=== PATIENT | male | born 1955 | race Caucasian/White ===

== ENCOUNTER 2018-06-14 07:55 | Day surgery (SDC) | payer OTHER ==
[2018-06-14 09:24] VITALS: BP 118/77; BMI 30.4
[2018-06-14] MEDS ORDERED: HYDROCODON-ACE1 EA10 PO (11:10)
--- NOTE | 2018-06-15 14:15 | OP ---
PATIENT NAME: MICHAEL BEAULIEU MEDICAL RECORD: [id number] :51 LOCATION:[facility] ADMISSION DATE: SURGEON: KORTNEY BAKER MD DATE OF OPERATION: 06/14/2018 PREOPERATIVE DIAGNOSES: Rotator cuff tear of the right shoulder with impingement syndrome. POSTOPERATIVE DIAGNOSES: Rotator cuff tear of the right shoulder with impingement syndrome. PROCEDURES: 1. Arthroscopic rotator cuff repair. 2. Arthroscopic distal clavicle excision done through separate incision -- 1 cm. 3. Arthroscopic subacromial decompression, acromioplasty and bursectomy. SURGEON: Kortney Baker MD ANESTHESIA: General. INTRAOPERATIVE COMPLICATIONS: None. SUMMARY OF PATHOLOGIC FINDINGS: The patient had full thickness rotator cuff tear of the anterior aspect of the supraspinatus tendon as predicted on the MRI. The patient did have some biceps tendinitis, not extreme. The patient had a downward sloping acromion with excoriation of the coracoacromial ligament as well as a grade IV chondromalacia of the distal clavicle. OPERATIVE SUMMARY IN DETAIL: After obtaining appropriate preoperative orthopedic surgery consent as well as anesthetic consultation, evaluation and clearance, the patient was brought to the operating room and placed on operating table in supine position. After general laryngeal mask airway was administered, the patient was placed in a left lateral decubitus position. All pressure points were well padded. He was held firmly to the operating table using the vacuum pack suction system. Right upper extremity and shoulder were then prepped and draped in routine sterile fashion. The arm was held in the Arthrex traction boom in 30 degrees of forward flexion, 30 degrees of abduction, 10 pounds of traction laterally. Arthroscopy was established in the glenohumeral joint from the posterior portal, anterior portal was established in the anterior safe interval. Diagnostic arthroscopy did show the above findings. The patient did have a full thickness rotator cuff tear. A transrotator cuff tear portal was created, through which debridement of undersurface tearing was followed by decortication of the articular side of the supraspinatus tendinous footprint. Attention was turned to the subacromial space. While in the subacromial space, Arthrex [place] tissue ablation system was utilized to denude the undersurface of acromion of all soft tissue elements and release the coracoacromial ligament. A 5-0 barrel bur was then used to perform acromioplasty at the level of acromioclavicular joint. Distal clavicle was excised through an anterior arthroscopic portal under direct arthroscopic visualization. Having completed this, attention was returned to the rotator cuff. Further decortication was carried out for reapproximation. This was followed by an inverted mattress #2 FiberWire anchored laterally with a 5.5 SwiveLock from Arthrex completing the SpeedBridge. Having completed this, arthroscopy portals were closed in routine interrupted fashion using 4-0 Prolene. Sterile dressings were applied. The OPERATIVE REPORT [id number] MICHAEL BEAULIEU patient was awakened, taken to recovery room in stable condition. All final needle and sponge counts were correct. TRANSINT:[id number] Voice Confirmation ID: [id number] DOCUMENT ID: [id number] OLIVIA MANDUJANO, KORTNEY MAHMOOD at 1415 CC: [id number] DICTATION DATE: 06/14/18 1124 BOAT ENGINE MECHANIC: 06/14/18 1602 [facility] 06/14/18 [id number] [place] [address]
== END 2018-06-14 13:44 | disposition home or self-care (01) ==
LOC: D.OPS 07:55
DX: M75.121 Complete rotator cuff tear or rupture of right shoulder, not specified as traumatic (principal); M75.41 Impingement syndrome of right shoulder; Z01.812 Encounter for preprocedural laboratory examination

== ENCOUNTER → 2019-08-30 14:49 | Outpatient (CLI) | payer OTHER ==
[~2019-08-30 14:49] MED LIST: HYDROCODON-ACE1 EA10 PO
== END | disposition home or self-care (01) ==
LOC: D.CT 14:49
PROVIDERS: ATTEND Nurse Practitioner Family
DX: I74.3 Embolism and thrombosis of arteries of the lower extremities (principal)

== ENCOUNTER 2019-09-09 06:38 | Outpatient (CLI) | payer OTHER ==
[~2019-09-09] VITALS: Ht 172.7 cm; Wt 90.9 kg
--- NOTE | ~2019-09-09 | HEMODYNAMI ---
PATIENT:MICHAEL BEAULIEU MEDICAL RECORD: [id number] : 51 LOCATION:[facility] ADMISSION DATE: 09/09/19 Generatedon:09/09/201911:17 Patient name: MICHAEL BEAUILEU Patient #: [id number] SSN: D OB: 1955 Date of study: 09/09/2019 Page: Of Hemodynamic Procedure Report Patient Data Patient Demographics Procedure consent was obtained First Name: MICHAEL Gender: Male Last Name: BRITTNEE : 1955 Middle Initial: DONI Age: 63 year(s) Patient #: [id number] Race: Unknown Additional ID: [id number] Contact details [address]: [address] [place] [address] rd State: [place] City: [place] Zip code: [address] Past Medical History Allergies Allergen Reaction Date Comments Reported Iodine 09/09/2019 Betadine 09/09/2019 Admission Admission Data Admission Date: 09/09/2019 Admission Time: 6:38 Height (in.): 68 BSA: 2.04 (m2) Height (cm.): 172.72 BMI: 30.41 (kg/m2) Weight (lbs.): 200 Weight (kg.): 90.72 Procedure Procedure Types Cath Procedure Peripheral Cath Diagnostic Procedure Culinary Worker Peripheral Procedures Abd/Extremity Extremities Left Lower Ext Arterio Procedure Description Procedure Date Procedure Date: 09/09/2019 Procedure Start Time: 9:40 Procedure Staff Name Function Sameer Zhu MD Performing Physician Britney Díaz RT Record Librarian Lv BOATENG RN Nurse Rox Leyva RN Nurse Jackson Saba RT Scrub Procedure Data Cath Procedure Fluoroscopy Diagnostic fluoroscopy Total fluoroscopy Time: time: 22.1 min 22.1 min Diagnostic fluoroscopy Total fluoroscopy dose: 666 dose: 666 mGy mGy Contrast Material Contrast Material Type Amount (ml) Isovue 300 145 Entry Location Entry Primary Successful Side Size Upsize Upsize Entry Closure Succes sful Closure Location (Fr) 1 (Fr) 2 (Fr) Remarks Device Remarks Femoral Mynx artery Roto Rooter Operator 6Fr/7Fr Diagnostic catheters Device Type Used For End Catheter Placement DIAGNOSTIC IMT 5Fr Catheter ([id number]) Procedure Medications Medication Administration Route Dosage Lidocaine 1% added to field Heparin Flush Bag added to field 2 bags (1000units/500ml NS) Versed I.V. 1 mg Fentanyl I.V. 50 mcg Versed I.V. 0.5 mg Fentanyl I.V. 25 mcg Versed I.V. 0.5 mg Fentanyl I.V. 25 mcg Heparin Bolus I.V. 4000 units Nitroglycerin IC/IA I.A. 250 mcg Versed I.V. 0.5 mg Fentanyl I.V. 25 mcg Versed I.V. 1 mg Fentanyl I.V. 50 mcg Versed I.V. 0.5 mg Fentanyl I.V. 25 mcg Heparin Bolus I.V. 2500 units Fentanyl I.V. 50 mcg Versed I.V. 1 mg Integrilin (Bolus I.A. 8.5 ml 2mg/ml) Versed I.V. 0.5 mg Fentanyl I.V. 25 mcg Versed I.V. 0.5 mg Fentanyl I.V. 25 mcg Hemodynamics Rest BSA: 2.04 (m2) O2 Consumption: Estimated: 231.76 (ml/min) O2 Consumption indexed : Estimated:113.61 (ml/min/m) Heart Rate: 62 (bpm) Snapshots Pre Cath Intra NCS Post Cath Vital Signs Time Heart Resp SPO2 etCO2 NIBP (mmHg) Rhythm Pain Sedation Rate (ipm) (%) (mmHg) Status Level (bpm) 9:20:59 66 16 99 21 No Cuff NSR 0 (11) 9(A) , No pain 9:24:46 62 11 99 30.8 130/82(112) NSR 0 (11) 9(A) , No pain 9:28:56 59 15 100 27.8 125/83(108) NSR 0 (11) 9(A) , No pain 9:33:02 59 11 100 30.8 131/87(109) NSR 0 (11) 9(A) , No pain 9:37:12 60 16 100 30 127/85(116) NSR 0 (11) 9(A) , No pain 9:41:22 59 15 100 30 131/78(107) NSR 0 (11) 9(A) , No pain 9:45:31 65 16 97 30.8 118/82(106) NSR 0 (11) 9(A) , No pain 9:49:37 65 14 97 31.6 114/77(101) NSR 0 (11) 9(A) , No pain 9:53:45 67 12 97 35.3 111/71(92) NSR 0 (11) 9(A) , No pain 9:57:53 69 13 98 35.3 109/66(84) NSR 0 (11) 9(A) , No pain 10:01:59 68 12 98 23.3 113/68(86) NSR 0 (11) 9(A) , No pain 10:06:09 72 13 96 32.3 94/63(75) NSR 0 (11) 9(A) , No pain 10:10:12 69 12 97 33.8 96/58(80) NSR 0 (11) 9(A) , No pain 10:14:16 63 12 97 5.2 107/63(88) NSR 0 (11) 9(A) , No pain 10:18:24 63 13 97 13.5 119/65(79) NSR 0 (11) 9(A) , No pain 10:23:23 57 14 98 27.8 Measuring NSR 0 (11) 9(A) , No pain 10:23:27 58 14 98 30.8 158/97(139) NSR 0 (11) 9(A) , No pain 10:27:47 68 12 97 30.8 149/84(130) NSR 0 (11) 9(A) , No pain 10:32:05 57 10 99 34.6 145/82(130) NSR 0 (11) 9(A) , No pain 10:36:21 60 15 98 33.8 145/86(130) NSR 0 (11) 9(A) , No pain 10:40:41 63 12 99 36.1 132/75(118) NSR 0 (11) 9(A) , No pain 10:45:40 55 15 95 21.8 Measuring NSR 0 (11) 9(A) , No pain 10:45:53 64 13 98 21 145/90(131) NSR 0 (11) 9(A) , No pain 10:50:50 56 13 99 12.7 134/80(123) NSR 0 (11) 9(A) , No pain 10:54:59 67 14 95 23.3 149/96(119) NSR 0 (11) 9(A) , No pain 10:59:18 66 14 94 25.5 156/83(113) NSR 0 (11) 9(A) , No pain 11:03:21 73 26 96 0 141/96(117) NSR 0 (11) 9(A) , No pain 11:07:35 62 13 98 15 150/86(128) NSR 0 (11) 9(A) , No pain 11:12:30 70 17 98 22.5 143/88(122) NSR 0 (11) 9(A) , No pain 11:16:46 62 9 99 20.3 143/83(117) NSR 0 (11) 9(A) , No pain Medications Time Medication Route Dose Verified Delivered Reason Notes Effectiveness by by 9:21:12 Lidocaine 1% added Sameer Merchantr used for to Marko BOATENG procedure field MANDUJANO RN 9:21:27 Heparin Flush added 2 Sameer Merchantr used for Bag to bags Marko BOATENG procedure (1000units/500ml field MANDUJANO RN NS) 9:43:20 Versed I.V. 1 mg Sameer Awan for sedation Marko BOATENG MD, RN 9:43:29 Fentanyl I.V. 50 Sameer Merchantr for sedation mcg Marko BOATENG MD, RN 9:45:41 Versed I.V. 0.5 Sameer Awan for sedation mg Marko BOATENG MD, RN 9:45:47 Fentanyl I.V. 25 Sameer Awan for sedation mcg Marko BOATENG MD, RN 10:01:29 Versed I.V. 0.5 Sameer Awan for sedation mg Marko BOATENG MD, RN 10:01:42 Fentanyl I.V. 25 Sameer Awan for sedation mcg Marko BOATENG MD, RN 10:03:24 Heparin Bolus I.V. 4000 Sameer Awan for units Marko cervantes MD, RN 10:03:57 Nitroglycerin I.A. 250 Sameer Estrella Per physician IC/IA mcg Marko Zhu MD, MD 10:16:34 Versed I.V. 0.5 Sameer Estrella for sedation mg Marko Zhu MD, MD 10:16:39 Fentanyl I.V. 25 Sameer Estrella for sedation mcg Marko Zhu MD, MD 10:23:14 Versed I.V. 1 mg Sameer Estrella for sedation Marko Zhu MD, MD 10:23:20 Fentanyl I.V. 50 Sameer Estrella for sedation mcg Marko Zhu MD, MD 10:31:16 Versed I.V. 0.5 Sameer Estrella for sedation mg Marko Zhu MD, MD 10:31:21 Fentanyl I.V. 25 Sameer Estrella for sedation mcg Marko Zhu MD, MD 10:33:26 Heparin Bolus I.V. 2500 Sameer Estrella for units Marko cervantes MD, MD 10:42:32 Fentanyl I.V. 50 Sameer Estrella for sedation blanca Zhu MD, MD 10:42:38 Versed I.V. 1 mg Sameer Estrella for sedation Marko Zhu MD, MD 10:49:44 Integrilin I.A. 8.5 Sameer Estrella for (Bolus 2mg/ml) ml Marko avendano MD, MD therapy 10:55:51 Versed I.V. 0.5 Sameer Estrella for sedation mg Marko Zhu MD, MD 10:55:59 Fentanyl I.V. 25 Sameer Estrella for sedation mcg Marko Zhu MD, MD 11:08:30 Versed I.V. 0.5 Sameer Estrella for sedation mg Marko Zhu MD, MD 11:08:36 Fentanyl I.V. 25 Sameer Estrella for sedation blanca Zhu MD, MD Procedure Log Time Note 9:00:44 Patient Height : 68 inches 9:00:53 Patient Weight : 200 lbs 9:01:26 Use device set IR Diagnostic 9:01:28 Tegaderm 4 x 4 (1626W) opened to sterile field. 9:01:29 Sterile Angiographic Pack opened to sterile field. 9:01:30 Bag Decanter (2002S) opened to sterile field. 9:03:05 Micropuncture VSI 4FR kit opened to sterile field. 9:03:06 DEBBIE 145cm wire ([id number]) opened to sterile field. 9:03:07 STEIN 260 wire ([id number]) opened to sterile field. 9:03:09 SHEATH 5FR [place] (GVZ004) opened to sterile field. 9:03:10 [facility] .035 260 glide wire ([id number]) opened to sterile field. 9:03:16 - 9:12:40 Time tracking: Regular hours (M-F 7:00 - 5:00) 9:12:53 Plan of Care:Hemodynamics will remain stable., Cardiac rhythm will remain stable., Comfort level will be maintained., Respiratory function will remain adequate., Patient/ family verbilizes understanding of procedure., Procedure tolerated without complication., Recovers from procedure without complications.. 9:13:03 Patient received from Outpatients to IR Alert and oriented. Tansferred to table in Supine position. 9:13:08 Signed procedure consent form obtained from patient. 9:13:13 H&P Date Dictated: 09/09/2019 Within 30 days and on chart., H&P Addendum completed by physician on day of procedure. (MUST COMPLETE FOR ALL OUTPATIENTS). 9:13:16 Pre-procedure instructions explained to patient. 9:13:17 Pre-op teaching completed and patient verbalized understanding. 9:13:33 Family unavailable. 9:13:37 Patient NPO since Midnight. 9:13:49 Patient allergic to Iodine 9:14:05 Is the patient allergic to Iodine/contrast media? No to contrast but ye s to iodine in betadine 9:14:54 Patient allergic to Betadine 9:14:59 ----Pre-sedation anethsthesia assessment.---- 9:15:12 Previous problem with sedation/anesthesia? No ? 9:15:17 Snore? Yes 9:15:21 Sleep apnea? No 9:15:23 Deviated septum? No 9:15:26 Opens mouth fully? Yes 9:15:29 Sticks out tongue? Yes 9:15:32 Airway obstruction? No ? 9:15:35 Dentures? No ? 9:15:38 - 9:20:06 ECG and BP/O2 sat monitors applied to patient. 9:20:08 Vital chart was started 9:20:09 Baseline sample Acquired. :20:12 Full Disclosure recording started :20:13 - :21:12 Lidocaine 1% added to field was administered by Lv BOATENG RN; used for procedure; Verbal order read back and verified. 9:21:27 Heparin Flush Bag (1000units/500ml NS) 2 bags added to field was administered by Lv BOATENG RN; used for procedure; Verbal order read back and verified. 9:23:47 A DIAGNOSTIC IMT 5Fr Catheter ([id number]) was advanced over the wire an d used for . 9:38:47 - 9:38:54 Pre procedure: right dorsailis pedis pulse Doppler 9:38:57 Pre procedure: left dorsailis pedis pulse Doppler 9:39:01 Pre procedure: right posterior tibial pulse Doppler 9:39:06 Pre procedure: left posterior tibial pulse Doppler 9:39:15 Right groin area was prepped with chlora-prep and draped in sterile fashion 9:39:18 Physician arrived 9:39:19 --------ALL STOP TIME OUT------ 9:39:20 Final Timeout: patient, procedure, and site verified with staff and physician. All members of the team are in agreement. 9:39:25 Fire Safety Assessment: A--An alcohol-based skin anteseptic being used preoperatively., C--Open oxygen or nitrous oxide is being used. 9:39:31 3a) 45-59 Moderately reduced kidney function. 9:40:03 Procedure started. 9:40:07 Local anesthetic to right femoral artery with Lidocaine 1% by Sameer Zhu MD.INITIAL ACCESS ONLY 9:43:20 Versed 1 mg I.V. was administered by Lv BOATENG RN; for sedation; Verbal order read back and verified. 9:43:29 Fentanyl 50 mcg I.V. was administered by Lv BOATENG RN; for sedation; Verbal order read back and verified. 9:45:41 Versed 0.5 mg I.V. was administered by Lv BOATENG RN; for sedation; Verbal order read back and verified. 9:45:47 Fentanyl 25 mcg I.V. was administered by Lv BOATENG RN; for sedation; Verbal order read back and verified. 9:47:13 ROADRUNNER FIRM 260CM glide wire ([id number]) opened to sterile field. 9:47:27 Trailblazer 0.035 135cm catheter ([id number]) opened to sterile field. 9:49:30 SHEATH 6FR Destination (RSR01) opened to sterile field. 9:55:45 CHOICE PT Extra Support J 300cm guide wire ([id number]) opened to steril e field. 9:55:56 INFLATOR BasixTOUCH (XO6605) opened to sterile field. 10:00:59 Inflate balloon Inflation number: 1 A NANOCROSS ELITE 3 X 150 ([id number]) was prepped and advanced across the Undefined1 , then inflated . 10:01:21 Hawkone Medium Atherectomy System (H1-M) opened to sterile field. 10:01:29 Versed 0.5 mg I.V. was administered by Lv BOATENG RN; for sedation; Verbal order read back and verified. 10:01:42 Fentanyl 25 mcg I.V. was administered by Lv BOATENG RN; for sedation; Verbal order read back and verified. 10:03:24 Heparin Bolus 4000 units I.V. was administered by Lv BOATENG RN; fo r anticoagulation; Verbal order read back and verified. 10:03:57 Nitroglycerin IC/IA 250 mcg I.A. was administered by Sameer Zhu MD; Per physician; Verbal order read back and verified. 10:16:34 Versed 0.5 mg I.V. was administered by Sameer Zhu MD; for sedation; Verbal order read back and verified. 10:16:39 Fentanyl 25 mcg I.V. was administered by Sameer Zhu MD; for sedation; Verbal order read back and verified. 10:22:19 Inflate balloon Inflation number: 2 A IN.PACT Admiral 7 x 80 x 130 DCB Balloon ([id number]) was prepped and advanced across the Undefined1 , then inflated . 10:23:14 Versed 1 mg I.V. was administered by Sameer Zhu MD; for sedation; Verbal order read back and verified. 10:23:20 Fentanyl 50 mcg I.V. was administered by Sameer Zhu MD; for sedation; Verbal order read back and verified. 10:25:47 Inflate balloon Inflation number: 3 A INPACT ADMIRAL 6 X 250 X 130 ([id number]) was prepped and advanced across the Undefined1 , then inflated to 0 GEORGE for 0:00 (min:sec) . 10:30:42 SHEATH 6FR [place] (VHD405) opened to sterile field. 10:31:16 Versed 0.5 mg I.V. was administered by Sameer Zhu MD; for sedation; Verbal order read back and verified. 10:31:21 Fentanyl 25 mcg I.V. was administered by Sameer Zhu MD; for sedation; Verbal order read back and verified. 10:33:26 Heparin Bolus 2500 units I.V. was administered by Sameer Zhu MD; fo r anticoagulation; Verbal order read back and verified. 10:38:28 Place stent Inflation Number: 1 A EVERFLEX 7 X 150 X 120 STENT ([id number]) was prepped and advanced across the Undefined2 . The stent was deployed at 0 GEORGE for 0:00 (min:sec) . 10:42:32 Fentanyl 50 mcg I.V. was administered by Sameer Zhu MD; for sedation; Verbal order read back and verified. 10:42:38 Versed 1 mg I.V. was administered by Sameer Zhu MD; for sedation; Verbal order read back and verified. 10:44:24 Inflate balloon Inflation number: 2 A Evercross 7 x 120 x 135 Balloon ([id number]) was prepped and advanced across the Undefined2 , then inflated . 10:49:44 Integrilin (Bolus 2mg/ml) 8.5 ml I.A. was administered by Sameer foster MD; for antiplatelet therapy; Verbal order read back and verified. 10:55:51 Versed 0.5 mg I.V. was administered by Sameer Zhu MD; for sedation; Verbal order read back and verified. 10:55:59 Fentanyl 25 mcg I.V. was administered by Sameer Zhu MD; for sedation; Verbal order read back and verified. 11:00:59 EVERFLEX 6 x 60 x 120 Stent ([id number]) was deployed across Undefined3 . 11:08:30 Versed 0.5 mg I.V. was administered by Sameer Zhu MD; for sedation; Verbal order read back and verified. 11:08:36 Fentanyl 25 mcg I.V. was administered by Sameer Zhu MD; for sedation; Verbal order read back and verified. 11:11:42 COOK SHEATH 6FR RAABE 55CM ([id number]) opened to sterile field. 11:11:56 MYNX PROGRAM PRODUCTION SPECIALIST 6FR/7FR (LY0194) opened to sterile field. 11:15:52 A sheath was inserted into the Femoral artery 11:15:52 Sheath removed intact; hemostasis achieved with Mynx Roto Rooter Operator 6Fr/7Fr to th e Femoral artery. 11:15:56 Procedure ended.(Physican Out) 11:16:23 Fluoroscopy time 22.10 minutes. 11:16:27 Flurop Dose total: 666 11:16:27 Fluoroscopy dose: 666 mGy 11:16:34 Contrast amount:Isovue 300 145ml. 11:16:37 Procedure and supply charges have been captured, reviewed, submitted an d are correct. 11:16:53 Report given to Outpatients. 11:17:31 Vital chart was stopped Intervention Summary Intervention Notes Time ActionType Lesion and Equipment Used Action# Pressure Duration Attributes 10:00:59 Inflate Undefined1 NANOCROSS ELITE 3 1 0 00:00 balloon X 150 ([id number]) 10:22:19 Inflate Undefined1 IN.PACT Admiral 7 2 0 00:00 balloon x 80 x 130 DCB Balloon ([id number]) 10:25:47 Inflate Undefined1 INPACT ADMIRAL 6 X 3 0 00:00 balloon 250 X 130 ([id number]) 10:38:28 Place stent Undefined2 EVERFLEX 7 X 150 X 1 0 00:00 120 STENT ([id number]) 10:44:24 Inflate Undefined2 Evercross 7 x 100 2 0 00:00 balloon x 135 Balloon ([id number]) 11:00:59 Deploy self Undefined3 EVERFLEX 6 x 60 x 1 expanding 120 Stent stent ([id number]) Device Usage Item Name Manufacture Quantity Catalog Number Hospital Part Cur rent Minimal Lot# / Charge Number Stock Stock Serial# Code Tegaderm 4 x 4 3M 1 1626W 245153 [id number] 989 934 5 (1626W) Sterile Cardinal 1 [id number] 119146 997 810 5 Angiographic Pack Health Bag Decanter Microtek 1 [id number] 00280 984 144 5 () [employer] Micropuncture VSI VSI VASCULAR 1 7266V 155927 999 157 5 4FR kit SOLUTIONS [place] 145cm [facility] 1 W14056 018749 999 560 5 wire (I28416) STEIN 260 wire [facility] 1 N19779 550360 69468 999 418 5 ([id number]) SHEATH 5FR Terumo 1 HWD031 700246 299613 993 804 5 [place] (HGA919) ROADRUNNER .035 [facility] 1 G00580 751912 482254 999 737 5 [id number] 260 glide wire (P56891) DIAGNOSTIC IMT [place] 1 [id number] 503404 118952 996 88 5 5Fr Catheter Scientific ([id number]) ROADRUNNER FIRM [employer] 1 K44991 315589 999 947 5 260CM glide wire (A81975) Trailblazer 0.035 Medtronic 1 ASC-035-135 236003 79617 999 959 5 135cm catheter ([id number]) SHEATH 6FR Terumo 1 RSR01 458765 52949 999 486 5 Destination (RSR01) CHOICE PT Extra [place] 1 [id number] 998 782 5 Support J 300cm Scientific guide wire ([id number]) INFLATOR Merit 1 GL0509 667207 499575 999 608 5 [employer] (OP6454) NANOCROSS ELITE 3 Medtronic 1 [id number] 472625 22982 999 995 1 X 150 ([id number]) Hawkone Medium Medtronic 1 H1-M 665448 999 81664 5 Atherectomy System (H1-M) IN.PACT Admiral 7 Medtronic 1 [id number] 180733 999 992 5 x 80 x 130 DCB Balloon ([id number]) INPACT ADMIRAL 6 Medtronic 1 [id number] 382994 0372767 999 997 1 X 250 X 130 ([id number]) SHEATH 6FR Terumo 1 UKQ058 104723 380164 994 727 40 [place] (CGI746) EVERFLEX 7 X 150 Medtronic 1 [id number] 995691 993872 999 997 5 [id number] X 120 STENT [id number] ([id number] Evercross 7 x 100 Medtronic 1 [id number] 083754 147380 999 995 5 x 135 Balloon ([id number]) EVERFLEX 6 x 60 x Medtronic 1 [id number] 084967 431308 999 991 5 [id number] 120 Stent [id number] ([id number]) COOK SHEATH 6FR [employer] 1 X44012 441988 531100 999 997 1 RAABE 55CM (P83088) MYNX PROGRAM PRODUCTION SPECIALIST 6FR/7FR Access 1 XN8378 333900 999 883 5 [id number] ([id number]) Closure Signature Audit Marks Stage Time Signature Unsigned Intra-Procedure 09/09/2019 Britney Díaz 11:17:26 AM RT(R) [id number] [place] [address]
[2019-09-09 06:54] LABS: BASOPHILS 0 % (0-2); EOSINOPHILS 0.2 % (0-7); HEMATOCRIT 44.4 % (42.0-54.0); HEMOGLOBIN 15.1 g/dL (13.5-17.5); IMMATURE GRANULOCYTES 0.2 % (0-5); LYMPHOCYTES 14.1 % (15-50); MCH 30.8 pg (26.0-34.0); MCV 90.4 fL (80.0-100.0); MEAN PLATELET VOLUME 8.8 fL (7.4-10.4); MONOCYTES 1.2 % (2-11); NEUTROPHILS 84.3 % (40-80); PLATELET COUNT 210 10x3/uL (130-400); RBC 4.91 10x6/uL (4.20-6.10); RDW 13.4 % (11.5-14.5)
[2019-09-09 07:02] LABS: APTT 31.3 SECONDS (22.8-39.4); CALCIUM 8.4 mg/dL (8.5-10.1); CARBON DIOXIDE 22.7 mmol/L (21.0-32.0); CREATININE - SERUM 1.5 mg/dL (0.6-1.3); INR 0.96 (0.85-1.17); POTASSIUM - SERUM 4.7 mmol/L (3.5-5.1); PROTIME 12.8 SECONDS (11.6-15.0)
[2019-09-09] MEDS ORDERED: PREDNISONE50 MG (08:12)
[2019-09-09] MEDS ORDERED: BENADRYL50 MG (08:13)
[2019-09-09 08:27] VITALS: Ht 172.7 cm; Wt 90.9 kg
--- NOTE | 2019-09-09 12:48 | NUR ---
1130 ARRIVED TO ROOM DROWSEY EASY TO ARROUSE. VS STABLE REPORT RECIEVED. IV SITE GOOD. DRESSING CDI. 1155 PT ATE ICE CREAM AND MEDICATED FOR PAIN LEFT LEG. ICE PACK APPLIED. 1250 IR NOTIFIED ABOUTABOUT PAIN IN LEFT LEG. WAITING FOR RETURN CALL
--- NOTE | 2019-09-09 14:49 | NUR ---
1430-MORPHINE 10MG NOT AVAILABLE FROM PHARMACY. ORDERS RECED TO GIVE MORPHONE 2MG IV NOW, MAY REPEAT TO TOTAL 6MG. 1435-MORPHINE 2MG GIVEN FOR PAIN OF 6. 1445-MORPHINE 2MG REPEATED FOR CONTINUED PAIN. 1445-DONI YING RN WITH [facility] HERE.
--- NOTE | 2019-09-09 19:55 | NUR ---
1330 IR CALLED AND NOTIFIED THEM OF PTS PAIN TO LEFT INNER THIGH AREA BETWEEN THIGH AND KNEE. NO SWELLING AREA SOFT. NO BRUISING NOTED. PALPABLE PULSES NOTED. ORDERS GIVEN TO GIVE PT MS IV 6MG. 1335 RX CALLED TO STOCK THE PYAXIS WITH MS. 1400 RX CALLED AGAIN ABOUT STOCKING THE PYXIS. 1430 MEDICATED IV MS PER DEREJE ZAMBRANO RN. 1500 HOB ELEVATED SOME. 1530 SITTING ON SIDE OF BED. BECAME DIZZY AND REQUESTED TO GET BACK IN BED FOR A FEW MINUTES. PT TALKING TO DONI FROM IR. PT RECIEVED A APT DATE. PT RECIEVED STINT CARDS. PAIN RELIEVED AND TOLERATING FLUIDS WELL. SITE W/O SWELLING AND PULSES PALP.1645 IV REMOVED AND INSTRUCTIONS GIVEN.
== END 2019-09-09 17:05 | disposition home or self-care (01) ==
LOC: D.SP 06:38 → D.RAD 13:00 → D.SP 13:00
PROVIDERS: Radiology Diagnostic Radiology; ATTEND Family Medicine
DX: I74.3 Embolism and thrombosis of arteries of the lower extremities (principal); E66.3 Overweight; Z68.29 Body mass index [BMI] 29.0-29.9, adult; I70.222 Atherosclerosis of native arteries of extremities with rest pain, left leg; M79.662 Pain in left lower leg; Z72.0 Tobacco use